=== PATIENT | female | born 1970 | race Caucasian/White ===

== ENCOUNTER → 2019-12-04 10:51 | Outpatient (BNVA) | payer OTHER, SELFPAY | PROVIDERS: Family Provider Family Medicine; PCP Family Medicine; Visit Provider Family Medicine | DX: J02.9 Acute pharyngitis, unspecified (principal); B97.89 Other viral agents as the cause of diseases classified elsewhere | CPT/HCPCS: 87081; 87880 ==

== ENCOUNTER → 2020-08-10 12:06 | Outpatient (BNVA) | payer OTHER, SELFPAY | PROVIDERS: Family Provider Family Medicine; PCP Family Medicine; Visit Provider Emergency Medicine | DX: Z20.828 Contact with and (suspected) exposure to other viral communicable diseases (principal); R68.89 Other general symptoms and signs | CPT/HCPCS: 87400; 87635 ==

== ENCOUNTER → 2020-09-28 11:54 | Outpatient (BNVA) | payer OTHER, SELFPAY | PROVIDERS: Family Provider Family Medicine; PCP Family Medicine; Visit Provider Nurse Practitioner Family | DX: Z20.828 Contact with and (suspected) exposure to other viral communicable diseases (principal) | CPT/HCPCS: 87635 ==

== ENCOUNTER → 2020-10-11 10:49 | Outpatient (BNVA) | payer OTHER, SELFPAY | PROVIDERS: Family Provider Family Medicine; PCP Family Medicine; Visit Provider Nurse Practitioner Family | DX: Z20.828 Contact with and (suspected) exposure to other viral communicable diseases (principal) | CPT/HCPCS: 87071; 87635; 87880 ==

== ENCOUNTER 2024-11-18 22:07 | Emergency (ER) | payer OTHER, SELFPAY ==
[2024-11-18 22:08] VITALS: BP 148/85; PULSE 72; RESP 16; TEMP 36.9; O2SAT 98; BMI 26.5
--- NOTE | 2024-11-18 22:11 | ECG_ITS ---
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 Measurements Intervals [place] Rate: 72 P: 38 NC: 191 QRS: 36 QRSD: 92 T: 30 QT: 381 QTc: 417 Interpretive Statements SINUS RHYTHM LOW QRS VOLTAGE IN PRECORDIAL LEADS No previous ECG available for comparison Electronically Signed On 11-19-2024 12:43:51 BLOCK PLACER by Bubba Wright M.D. [id number]
--- NOTE | 2024-11-18 22:25 | ECG_ITS ---
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 Measurements Intervals [place] Rate: 67 P: 45 MA: 212 QRS: 68 QRSD: 96 T: 56 QT: 388 QTc: 412 Interpretive Statements SINUS RHYTHM WITH FIRST DEGREE AV BLOCK LOW QRS VOLTAGE IN PRECORDIAL LEADS [QRS DEFLECTION < 1.0 mV IN CHEST LEADS] No previous ECG available for comparison Electronically Signed On 11-19-2024 12:09:04 REHEATER by Bubba Wright M.D. [email or web address] [id number]
--- NOTE | 2024-11-18 22:25 | XRR_ITS ---
PROCEDURE INFORMATION: Exam: XR Chest Exam date and time: 11/18/2024 10:40 PM Age: 54 years old Clinical indication: Chest pressure; C/O chest pain; Additional info: Cp TECHNIQUE: Imaging protocol: Radiologic exam of the chest. Views: 1 view. COMPARISON: No relevant prior studies available. FINDINGS: Lungs: Unremarkable. No consolidation. Pleural spaces: Unremarkable. No pleural effusion. No pneumothorax. Heart/Mediastinum: Unremarkable. No cardiomegaly. Bones/joints: Unremarkable. XR/XR chest 1V portable [id number] IMPRESSION: No acute findings.
--- NOTE | 2024-11-18 22:30 | ED_ITS ---
HPI - Chest Pain 2 General: Chief Complaint: Chest Pain Stated Complaint: Chest Pain Time Seen by Provider: 11/18/24 22:25 History of Present Illness: 54-year-old female with no prior history of coronary disease. She complains of chest discomfort that started 1.5 hours prior to arrival. She has been working outside today, moving a chicken coop. She denies fever. She has had a mild cough. She has been taking a decongestion. She points to her epigastrium, and says the pain radiates to the back. Mild shortness of breath. No vomiting. No history of heart disease. Related Data Previous Rx's ?Medication ?Instructions ?Recorded methylprednisolone 4 mg tablets in See Rx Instructions PO PER PKG DIR 07/30/21 a dose pack (Medrol (Juan)) #21 ea Allergies Allergy/AdvReac Type Severity Reaction Status Date / Time doxycycline Allergy ALGY-Rash Verified 07/30/21 11:08 morphine Allergy Unconscious Verified 07/30/21 11:08 [facility] ED 2 PFSH: Social History Smoking and tobacco/nicotine status: current every day tobacco/nicotine user cigarettes Packs smoked per day: 1 Alcohol intake: never Substance/Drug Use: never Female Reproductive History: Spontaneous abortions: No Physical Exam 2 Const: COMMON NORMALS: no acute distress GENERAL APPEARANCE: cooperative; not ill appearing and not frail appearing HENMT: COMMON NORMALS: normocephalic, atraumatic and Normal external nose present HEAD & SCALP: normocephalic and atraumatic FACE & SINUS: normal facial exam and face symmetric NOSE: Normal external nose present Eye: COMMON NORMALS: Equal, round and reactive pupils present and EOMs intact bilaterally PUPIL: Yes Equal, round and reactive pupils present Neck/C-Spine: GENERAL: Yes trachea midline Chest: CHEST: Yes Symmetrical chest wall rise Resp: COMMON NORMALS: normal respiratory effort, No retractions, No use of accessory muscles and clear to auscultation bilaterally AUSCULTATION: clear to auscultation bilaterally Cardio: COMMON NORMALS: regular rate and regular rhythm RATE: regular rate RHYTHM: regular rhythm GI: COMMON NORMALS: Normal to inspection, nondistended, normoactive bowel sounds present OTHER: Mild epigastric tenderness Extremity: COMMON NORMALS: no pedal edema Neuro: ENOC COMA SCALE: document GCS findings Enoc coma scale eye opening: Spontaneous Enoc coma scale verbal response: Orientated Enoc coma scale motor response: Obey commands [place] coma scale total score: 15 S ENSORY EXAM: Yes extremities (intact) Psych: COMMON NORMALS: speech normal SPEECH: Yes normal speech Skin: COMMON NORMALS: no rashes or lesions noted GENERAL SKIN EXAM: no rashes or lesions noted Course 2 Vital Signs: Vital signs: Vital Signs Temperature 98.4 F 11/18/24 22:08 Pulse Rate 68 11/19/24 00:28 Respiratory Rate 18 11/19/24 00:28 Blood Pressure 138/85 11/19/24 00:28 Pulse Oximetry 99 11/19/24 00:28 Oxygen Delivery Me thod Room Air 11/18/24 22:45 MDM - Chest Pain Medical Decision Making EKG shows a sinus rhythm, rate of 70, normal axis, no ST wave changes. She is afebrile. Chest x-ray is nonacute. CBC is normal. BMP is not remarkable. Troponin is nondetectable. BNP is normal. She is not tachycardic or hypoxic.She will be allowed discharge home. She will return for any return of or worsening symptoms. Lab Data 11/18/24 22:38 11/18/24 22:38 Radiology Impressions Chest X-Ray 11/18/24 22: IMPRESSION: No acute findings. Laboratory Results WBC 10.44 10^3/uL (3.29-11.43) 11/18/24 22:38 RBC 4.45 10^6/uL (3.85-5.65) 11/18/24 22:38 Hgb 14.10 g/dL (11.27-16.99) 11/18/24 22:38 Hct 41.3 % (36-47) 11/18/24 22:38 MCV 92.8 fl (85-98) 11/18/24 22:38 MCH 31.7 pg (27-33) 11/18/24 22:38 MCHC 34.1 g/dL (30-55) 11/18/24 22:38 RDW 13.2 % (12.1-15.1) 11/18/24 22:38 Plt Count 265 10^3/cmm (157-399) 11/18/24 22:38 MPV 10.4 fL (7.4-10.4) 11/18/24 22:38 Neut % (Auto) 67.3 % 11/18/24 22:38 Lymph % (Auto) 24.6 % 11/18/24 22:38 [place] % (Auto) 5.2 % 11/18/24 22:38 Eos % (Auto) 2.0 % 11/18/24 22:38 Baso % (Auto) 0.5 % 11/18/24 22:38 Neut # (Auto) 7.03 10^3/uL (1.8-7.7) 11/18/24 22: Lymph # (Auto) 2.6 10^3/uL (0.8-4.8) 11/18/24 22:38 [place] # (Auto) 0.5 10^3/uL (0.2-0.9) 11/18/24 22: Eos # (Auto) 0.2 10^3/uL (0.0-0.8) 11/18/24: Baso # (Auto) 0.1 10^3/uL (0.0-0.1) 11/18/24 22:38 Nucleated RBC % (auto) 0 % 11/18/24: Nucleated RBCs # 0.0 /100WBC 11/18/24 22:38 Sodium 141 mmol/L (136-145) 11/18/24 22:38 Potassium 3.4 mmol/L (3.5-5.1) L 11/18/24 22:38 Chloride 105 mmol/L (98-107) 11/18/24 22:38 Carbon Dioxide 26 mmol/L (22-29) 11/18/24 22:38 Anion Gap 13.4 (5-19) 11/18/24 22:38 BUN 9 mg/dL (6-20) 11/18/24 22:38 Creatinine 0.9 mg/dL (0.5-0.9) 11/18/24 22: GFR Calculation 65.0 mL/min (90-130) L 11/18/24 22:38 Glucose 118 mg/dL (65-115) H 11/18/24 22:38 Calculated Osmolality 292 mOsm/kg (285-295) 11/18/24 22:38 Calcium 10.2 mg/dL (8.5-10.5) 11/18/24 22:38 Total Bilirubin 0.2 mg/dL (0.15-1.2) 11/18/24 22:38 AST 11 U/L (0-32) 11/18/24 22:38 ALT 9 U/L (0-33) 11/18/24 22:38 Alkaline Phosphatase 116 U/L (35-105) H 11/18/24 22:38 Troponin T Baseline < 6 ng/L (0-10) 11/18/24 22:38 NT-Pro-B Natriuret Pep 77 pg/mL (0-125) 11/18/24 22:38 Total Protein 6.4 g/dL (6.6-8.7) L 11/18/24 22:38 Albumin 4.1 g/dL (3.5-5.2) 11/18/24 22:38 Globulin 2.3 g/dL (1.3-4.6) 11/18/24 22:38 All radiology interpretation(s) finalized by discharge Discharge Plan Discharge Patient Disposition: Home Clinical Impression: Chest pain Condition: Stable Prescriptions: No Action methylprednisolone [Medrol (Juan)] 4 mg tablets,dose pack See Rx Instructions PO PER PKG DIR Qty: 21 0RF Rx Instructions: PO PER PKG DIR Discharge Orders: Discharge ED (Routine); Ordered 11/19/24 Ordered By: Ebenezer Fry Referrals: Yang Rebollar MD [Primary Care Provider] - 1-3 days Patient Instructions: Chest Pain (ED), Opioid Safety, Pain Management Activity Restrictions/Additional Instructions: Return for repeated episodes of chest pain, fever, vomiting, shortness of breath, other concerning symptoms. See your doctor this coming week for follow- up appointment. Rest for the next 48 hours. Print Language: Serbian Coding Level of Care Code ED Bar Supervisor for Fela Hilton
[2024-11-18 22:45] VITALS: BP 146/86; PULSE 67; RESP 16; O2SAT 97
[2024-11-18 22:50] LABS: Basophils # 0.1 10^3/uL (0.0-0.1); Basophils % 0.5 %; Eosinophils # 0.2 10^3/uL (0.0-0.8); Hematocrit 41.3 % (36-47); Lymphocytes # 2.6 10^3/uL (0.8-4.8); Lymphocytes % 24.6 %; Mean Corpuscular HGB Conc 34.1 g/dL (30-55); Mean Corpuscular Hemoglobin 31.7 pg (27-33); Mean Corpuscular Volume 92.8 fl (85-98); Mean Platelet Volume 10.4 fL (7.4-10.4); Monocytes # 0.5 10^3/uL (0.2-0.9); Monocytes % 5.2 %; Neutrophils # 7.03 10^3/uL (1.8-7.7); Neutrophils % 67.3 %; Nucleated Red Blood Cells % 0 %; Platelet Count 265 10^3/cmm (157-399); Red Blood Count 4.45 10^6/uL (3.85-5.65); Red Cell Distribution Width 13.2 % (12.1-15.1); White Blood Count 10.44 10^3/uL (3.29-11.43)
[2024-11-18 23:11] LABS: Troponin(5th) Baseline < 6 ng/L (0-10)
[2024-11-18 23:20] LABS: Alanine Aminotransferase 9 U/L (0-33); Albumin Level 4.1 g/dL (3.5-5.2); Alkaline Phosphatase 116 U/L (35-105); Anion Gap 13.4 (5-19); Aspartate Amino Transferase 11 U/L (0-32); Blood Urea Nitrogen 9 mg/dL (6-20); Calcium 10.2 mg/dL (8.5-10.5); Carbon Dioxide 26 mmol/L (22-29); Chloride 105 mmol/L (98-107); Creatinine Clr Calc Pharmacy 65.3992; Globulin 2.3 g/dL (1.3-4.6); Glucose 118 mg/dL (65-115); Osmolality Calculated 292 mOsm/kg (285-295); Potassium 3.4 mmol/L (3.5-5.1); Sodium 141 mmol/L (136-145); Total Bilirubin 0.2 mg/dL (0.15-1.2); Total Protein 6.4 g/dL (6.6-8.7)
[2024-11-18 23:23] LABS: NT Pro B Type Natriuretic Pept 77 pg/mL (0-125)
--- NOTE | 2024-11-19 00:17 | ECG_ITS ---
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 Measurements Intervals [place] Rate: 65 P: 44 [place]: 214 QRS: 69 QRSD: 98 T: 54 QT: 398 QTc: 416 Interpretive Statements SINUS RHYTHM WITH FIRST DEGREE AV BLOCK Compared to ECG 11/18/2024 22:44:14 No significant changes Electronically Signed On 11-19-2024 12:43:04 PRODUCTION ASSOCIATE by Bubba Wright M.D. [email or web address] [email or web address]
[2024-11-19] MEDS: lidocaine 2% viscous 15 ML, aluminum-mag hydrox-simethicon 30 ML, sucralfate oral liq 1 GM PO (00:18)
[2024-11-19] MEDS: ketorolac 30 mg/mL INJ IVP (00:19)
[2024-11-19] MEDS: ondansetron 2 mg/ML SDV 2 mL 4 MG IVP (00:19)
[2024-11-19 00:28] VITALS: BP 138/85; PULSE 68; RESP 18; O2SAT 99
== END 2024-11-19 00:32 | disposition home or self-care (01) ==
PROVIDERS: Emergency Provider Emergency Medicine; Family Provider Family Medicine; PCP Family Medicine
DX: R07.9 Chest pain, unspecified (principal); F17.210 Nicotine dependence, cigarettes, uncomplicated
CPT/HCPCS: 36415; 71045; 80053; 83880; 84484; 85025; 93005; 96374; 96375; 99285; J1885; J2405

== ENCOUNTER 2024-11-23 06:13 | Outpatient (CLI) | payer OTHER, SELFPAY ==
--- NOTE | 2024-11-23 06:30 | US_ITS ---
WS: [id number] RIGHT UPPER QUADRANT ULTRASOUND HISTORY: continued RUQ pain p prandial and p negative ER w/u for card COMPARISON: None available. Liver: 13.0 cm in length. Normal size liver and echogenicity. No bile duct dilatation or mass. Portal Vein: Mixed flow in the portal vein may be indicative of early portal venous hypertension. Gallbladder: Normally distended gallbladder. There is a stone at the gallbladder neck which does not move with patient positioning. Mild diffuse thickening of the gallbladder wall to 4 mm. No pericholecystic fluid. CBD: 0.4 cm Pancreas: Normal size and echogenicity. Right kidney: 8.6 cm in length. Low normal size kidney. No obstruction. There is mild cortical thinning. Aorta and IVC: Unremarkable abdominal aorta and IVC. No ascites. US/US gall bladder 76808 IMPRESSION: 1. Cholelithiasis. Gallstone at the neck of the gallbladder may be entrapped. 2. Diffuse gallbladder wall thickening at 4 mm. No pericholecystic fluid. Diff use gallbladder wall thickening without edema can be seen with chronic hepatoce llular disease or chronic cholecystitis. 3. Low normal size RIGHT kidney and cortical thinning.
== END 2024-11-23 06:14 | disposition home or self-care (01) ==
PROVIDERS: Family Provider Family Medicine; PCP Family Medicine; Visit Provider Family Medicine
DX: K80.00 Calculus of gallbladder with acute cholecystitis without obstruction (principal); R93.3 Abnormal findings on diagnostic imaging of other parts of digestive tract; R93.421 Abnormal radiologic findings on diagnostic imaging of right kidney; R93.89 Abnormal findings on diagnostic imaging of other specified body structures
CPT/HCPCS: 76705

== ENCOUNTER 2024-12-11 08:51 | Day surgery (SDC) | payer OTHER, SELFPAY ==
[2024-12-11] VITALS (14 sets, daily range): BP systolic 93–135; BP diastolic 44–82; PULSE 71–99; RESP 10–18; TEMP 36.2–36.9; O2SAT 98–100; BMI 24.7
[2024-12-11] MEDS: sodium chloride 0.9% 1,000 ML 30 ML IV (10:09)
--- NOTE | 2024-12-11 10:11 | W.PM.OPSUD ---
Surgery/Procedure H&P Update DATE OF PROCEDURE: December 11, 2024 DATE H&P PERFORMED: 11/28/24 H&P UPDATE INFORMATION: I have reviewed H&P completed within last 30 days, I have examined patient prior to procedure, No changes to prior documentation and H&P is in [facility] EMR on date indicated PLANNED PROCEDURE: Operation Date: 12/11/24 10:40 Proposed Procedures p Laparoscopic Cholecystectomy Possible Open 69396 K80.00(Not Applicable) - Keith Kim MD
--- NOTE | 2024-12-11 10:32 | P.ANESASSM_ITS ---
Pre-Anesthetic Assessment Height/Weight: Height 5 ft 3 in Weight 140 lb Temp Pulse Resp BP Pulse Ox O2 Del Method 98.2 F 82 18 135/81 99 Room Air 12/11/24 09:35 12/11/24 09:35 12/11/24 09:35 12/11/24 09:35 12/11/24 09:35 12/11/24 09:39 Preop Diagnosis: Chronic cholecystitis Operation Date: 12/11/24 10:40 Proposed Procedures p Laparoscopic Cholecystectomy Possible Open 83776 K80.00(Not Applicable) - Keith Kim MD Was Beta Shai taken within 24 hours: N/A Was Clonidine taken within 24 hours: N/A Last intake: Intake Last Liquid Date 12/10/24 Last Liquid Time 23:35 Last Solid Date 12/10/24 Last Solid Time 18:00 Social No alcohol and No tobacco Exam alert, oriented x 3, clear to auscultation bilaterally and regular rate & rhythm Airway Submandibular: within normal limits Cervical ROM: within normal limits Mallampati: Class II Dentition: full Anesthetic Plan ASA status: 3 Anesthesia: General Other: Patient states that she has a history of nausea and vomiting after her C- section. Has had other anesthetics without issues NPO since yesterday evening Untreated hypertension, states that she needs to follow-up on this. Preop BP 135/81 Current smoker, occasional inhaler use Labs 11/18/2024 reviewed acceptable for procedure today METs greater than 4 Plan for GETA Medications/Allergies Allergies Allergy/AdvReac Type Severity Reaction Status Date / Time doxycycline Allergy ALGY-Rash Verified 11/28/24 10:12 morphine Allergy Unconscious Verified 11/28/24 10:12 Current Medications Generic Name Dose Route Start Last Admin Trade Name Freq PRN Reason Stop Dose Admin Sodium Chloride 1,000 mls @ 30 mls/hr 12/11/24 09:30 12/11/24 10:09 Sodium Chloride 0.9% IV 12/12/24 09:29 30 mls/hr .Q24H CLARENCE Administration PFSH Anesthesia Social History Smoking and tobacco/nicotine status: current every day tobacco/nicotine user cigarettes Packs smoked per day: 1 Alcohol intake: never Substance/Drug Use: never Female Reproductive History Spontaneous abortions: No Data Anesthesia Cardiac Studies: No Data to Display
[2024-12-11] MEDS: ceFAZolin 2,000 mg SDV 2000 MG IVP (10:53)
[2024-12-11] MEDS: lidocaine-epi 1% 20 mL INJ INJECTION (12:30)
[2024-12-11] MEDS: BUPivacaine 0.25% INJ 10 mL INJECTION (12:30)
--- NOTE | 2024-12-11 12:59 | PM.OP ---
Operative Report Date of procedure: December 11, 2024 Pre-op diagnosis: Chronic cholecystitis Post-op diagnosis: Same Post-op findings: Severely thickened gallbladder, there was a stone impacted at the level of the neck of the gallbladder. Significant chronic inflammation at the level of the hepatocystic triangle. Otherwise normal biliary anatomy Procedure done: Laparoscopic cholecystectomy Specimens removed/disposition: Gallbladder Surgeon: Keith Kim MD Client Services Administrator: DOMINGA OR STaff Estimated blood loss: 5 Brief History: This is a 54-year-old female with chronic right upper quadrant abdominal pain that has been getting worse over the last month or so. After a discussion of all risk and benefits of decided to proceed to the OR for a laparoscopic possible open cholecystectomy. Procedure: Patient was brought into the OR, she was placed in a supine position. General anesthesia was given. The abdomen was prepped and draped in the usual sterile fashion. The abdomen was accessed via infraumbilical incision with an open technique, a Frederick trocar was placed and fixed to the fascia with #0 Vicryl. Initial pneumoperitoneum showed no evidence of visceral injury during entry. Additional 5 mm trocars were placed in the epigastrium right upper quadrant and right flank positions under direct visualization. The gallbladder appeared to be thickened. It was grasped from the fundus and retracted cephalad. I then grasped the infundibulum and retracted in the inferolateral direction to expose the hepatocystic triangle. Retraction was challenging as there was a stone wedged in the neck of the gallbladder. I then used electrocautery to make an opening the peritoneum anterior to the gallbladder, I carried this opening in the medial and lateral direction to the edges of the liver and then on the sides of the gallbladder to allow for better exposure. There was significant inflammatory changes at the level of the hepatocystic triangle but with careful blunt dissection and electrocautery I was able to completely encircle the cystic duct and cystic artery and I was able to elevate the lower third of the gallbladder from the liver and thus creating a critical view of safety. I then proceeded to double clipped proximally and single clipped distally the cystic duct and cystic artery. I then transected the duct and artery. The gallbladder was removed from the liver using electrocautery. During removal a small hole was made in the posterior wall of the gallbladder. Suction irrigation was used to evacuate the bile and wash the gallbladder bed. The specimen was retrieved via Endo Catch bag through the umbilical trocar site. Hemostasis was verified and the liver bed was irrigated 1 more time. No evidence of bleeding or bile leak was noted from the area of surgery. I then proceeded to remove the umbilical trocar and proceeded to close the fascia using a [place]-Vivian suture passer with a 0 Vicryl under direct visualization. The epigastrium and right upper quadrant trocars were removed under direct visualization and the right flank trocar was used to evacuate the pneumoperitoneum and subsequently removed. Hemostasis of the wounds were achieved and local anesthesia was infiltrated. The wounds were closed with #4-0 Monocryl. Dermabond was applied. At the end of the procedure all counts were correct, the patient tolerated well the procedure and was transferred to the PACU in stable condition
[2024-12-11] MEDS: fentaNYL 50 mcg/mL INJ 2mL IVP ×2 (13:08→13:14)
--- NOTE | 2024-12-11 13:40 | PC.NURSE ---
Dr Avendaño at side as well discussing pain with pt - pt refuses further IV pain medication
--- NOTE | 2024-12-11 14:35 | ANE.PACU2 ---
Inpatient post-anesthesia follow up: Airway intact: Yes Vital signs: Temperature 98.4 F Pulse Rate 78 Respiratory Rate 18 Blood Pressure 119/80 Pulse Oximetry 99 Oxygen Delivery Me thod Room Air Oxygen Flow Rate Fraction of Inspir ed Oxygen Hydration adequate: Yes Nausea and vomiting: No Pain level: 1 Mental status: Baseline
== END 2024-12-11 14:35 | disposition home or self-care (01) ==
PROVIDERS: Family Provider Family Medicine; PCP Family Medicine; Visit Provider Surgery
PROC: 0FT44ZZ Resection of Gallbladder, Percutaneous Endoscopic Approach (ICD-10-PCS; CPT 47562; principal; 2024-12-11 10:30)
DX: K80.12 Calculus of gallbladder with acute and chronic cholecystitis without obstruction (principal); I10 Essential (primary) hypertension; F17.210 Nicotine dependence, cigarettes, uncomplicated; Z88.5 Allergy status to narcotic agent
CPT/HCPCS: 47562; 88304; J0690; J1100; J1885; J2405; J2704; J3010; J3490; J7030; J9999